=== PATIENT | female | born 2005 | race Caucasian/White ===

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

== ENCOUNTER 2024-04-22 09:30 | Outpatient (AMB) | payer OTHER, SELFPAY ==
[2024-04-22 09:37] VITALS: BP 108/59; PULSE 79; O2SAT 98; BMI 27.9
--- NOTE | 2024-04-22 09:37 | A.OFFPC_ITS ---
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 She states she had no trauma, bump on top right of head. Accompanied by: Mother Is last menstrual period known: Yes Last menstrual period: 04/19/24 Allergies No Known Allergies Allergy (Verified 04/22/24 09:41) Tobacco use date assessed: 04/22/24 Dental Screening Dental Screen Date: 04/22/24 Did you have a dental visit in the last 12 months?: Yes Did you have a dental problem in the last 6 months where you did not have access to dental care?: No Was dental information given to patient?: Patient has dentist HPI HPI Comments History of Present Illness Details This is a 18-year-old female with a past medical history of eczema presenting to [facility]. She is accompanied by her mother, Smiley. Patient noticed a bump on the right side of her scalp a couple of months ago. She is unsure if it has changed. She scheduled this appointment because it has become painful. It hurts to press on it, and she is getting headaches described as pain originating from the bump. They have been better the past few days. S he noticed them only in the evening when she was not distracted. Mom offered ibuprofen and Tylenol, but patient does not like to take medications. Admits she is not drinking a lot of water during the day. No vomiting, acute vision change, light sensitivity, dizziness, numbness or weakness. When questioning her about this, she says when she was in the car with her mom a few days ago they got in an argument. She was holding in some of her emotions. Patient felt anxious and tense. She says at that time vision was going in and out and she felt kind of nauseous, but symptoms resolved spontaneously, and they did not return. Denies head trauma. ROS: Constitutional: No unexplained weight loss, fever, chills, fatigue or night sweats. Eyes: No loss of vision, double vision, eye pain, eye redness, eye discharge. ENT: No hearing loss, sneezing, congestion, runny nose or sore throat. Respiratory: No shortness of breath Cardiovascular: No chest pain Gastrointestinal: No anorexia, nausea, vomiting or diarrhea. No abdominal pain. Neurologic: No dizziness, syncope, unilateral weakness, ataxia, numbness or tingling in the extremities. Physical exam: Constitutional: Alert, in no distress. Head: pea-sized, firm, tender lesion on right right parietal area. Patient endorses radiating head pain to her forehead when pressure is applied. no erythema or fluctuance. Eyes: Pupils are equal, round and reactive to light. Extraocular muscles intact. Ear, Nose and Throat: Canals clear. TMs normal. Normal nasal mucosa. No nasal discharge. No oral lesions. Neck: Supple, Full range of motion. No lymphadenopathy. Respiratory: Clear to auscultation. Cardiovascular: S1 S2 regular. No murmurs. Neurologic:?Alert and oriented x 3, no focal deficits observed, CN 2-12 intact, [id number]-[id number] normal, sensation equal and symmetric, strength UE and LE 5/5 bilaterally, reflexes equal and symmetric.? Normal gait.? Patient able to heel walk, toe walk and walk heel-to-toe across the floor.? No pronator drift.? Negative Romberg. Psychiatric: Normal mood and affect [facility] Medical History (Updated 04/22/24 @ 10:31 by ARNOLDO Esparza) Scalp cyst No pertinent past medical history Surgical History (Updated 04/22/24 @ 10:12 by ARNOLDO Esparza) History of wisdom tooth extraction No pertinent past surgical history Family History (Updated 04/22/24 @ 09:45 by Ashley Childs CMA) Mother Obesity Diabetes High blood pressure Brother No problems noted. Maternal Grandmother Cervical cancer Obesity Father Obesity Social History Household Members: Family Household Members Other:: Lives with mother and younger brother. No smokers in the home Both parents involved: Yes Housing: House Are you a primary care program director to a significant other at home: No Do you presently have visiting nurse or other home services: No 75 years or older and lives alone: No Patient Tobacco Use Status: Never used Tobacco e-Cigarette/Vaping Use: Never Used service: No Current occupational status: student Cognitive needs: No Hearing needs: No Vision needs: No Female Reproductive History Menstrual Date of last menstrual period: 04/19/24 Questionnaire PHQ-9 Over the last 2 weeks, how often have you been bothered by any of the following problems? 1. Little interest or pleasure in doing things: not at all 2. Feeling down, depressed, or hopeless: not at all 3. Trouble falling or staying asleep, or sleeping too much: not at all 4. Feeling tired or having little energy: not at all 5. Poor appetite or overeating: not at all 6. Feeling bad about yourself - or that you are a failure or have let yourself or your family down: not at all 7. Trouble concentrating on things, such as reading the newspaper or watching television: not at all 8. Moving or speaking so slowly that other people could have noticed. Or the opposite - being so fidgety or restless that you have been moving around a lot more than usual: not at all 9. Thoughts that you would be better off or of hurting yourself in some way: not at all Total score: 0 Source: Developed by Drs. Devonte Coates, Missy Tang, Sarthak Ramirez and colleagues, with an educational nani from [employer]. Thrive Questionnaire Date Thrive assessed: 04/22/24 I am a: Patient What is your living situation today?: I have a steady place to live Within the past 12 months, did the food you bought not last and you didn't have the money to get more?: Never true Within the past 12 months, did you worry whether your food would run out before you got money to buy more?: Never true Do you have trouble paying for medicines?: No Do you have trouble getting transportation to medical appointments?: No Do you have trouble paying your heating and electricity bill?: No Do you have trouble taking care of your child, family member or friend?: No Do you have trouble with day-to-day activities such as bathing, preparing meals, shopping, managing finances, etc.?: No Are you currently unemployed and looking for a job?: No Are you interested in more education?: Yes THRIVE Score: 0 AUDIT C Alcohol Use Questionnaire (AUDIT-C) 1. How often do you have a drink containing alcohol?: Never 3. How often do you have six or more drinks on one occasion?: Never Total Score: 0 DEVONTE-7 AMB Questionnaire DEVONTE-7 Date DEVONTE - 7 assessed: 04/22/24 Feeling nervous, anxious, or on edge: 1 = Several days Not being able to stop or control worryin = Not at all Worrying too much about different things: 0 = Not at all Trouble relaxin = Several days Being so restless that it is hard to sit still: 3 = Nearly every day Becoming easily annoyed or irritable: 3 = Nearly every day Feeling afraid as if something awful might happen: 1 = Several days Total DEVONTE-7 score (0-4 normal; 5-9 mild; 10-14 moderate; 15-21 severe): 9 Source: Developed by Drs. Devonte Coates, Missy Tang, Sarthak Ramirez and colleagues, with an educational nani from [employer]. Physical exam (Primary Care) Vital Signs: Last Vital Signs Pulse 79 04/22/24 09:37 BP 108/59 L 04/22/24 09:37 Pulse Ox 98 04/22/24 09:37 Oxygen Delivery Method Room Air 04/22/24 09:37 BMI result Body Mass Index 27.9 Tobacco/Smoking Status: Tobacco use Status Tobacco use date assessed 04/22/24 04/22/24 09:50 Patient Tobacco Use Status Never used Tobacco 04/22/24 09:50 e-Cigarette/Vaping Use Never Used 04/22/24 09:50 PHQ-9: PHQ-9 Score PHQ-9: Total score 0 04/22/24 09:50 Thrive Assessment: Date of Thrive Assessment Date Thrive assessed 04/22/24 04/22/24 09:50 Assessment and Plan Assessment & Plan (1) Scalp cyst: Code(s): L72.9 - Follicular cyst of the skin and subcutaneous tissue, unspecified (2) Head pain: Code(s): R51.9 - Headache, unspecified Qualifiers: Headache type: other headache syndrome Qualified Code(s): G44.89 - Other headache syndrome Plan Clinical suspicion for dermoid or pilar cyst. It's become uncomfortable for the pt even though it is small so I referred her to [place] [facility] to discuss excision. Patient associated head pain/headache with it. Tender on exam but no erythema, swelling or fevers/chills to indicate infection. Avoid touching the bump. Increase fluids, apply warm or cold compress in evening to see if this helps. Neurologic exam wnl so deferred imaging at this time. Advised to call back if symptoms worsen. Warning signs warranting ER evaluation reviewed. Orders: Referrals Dermatology Referral L72.9 - Follicular cyst of the skin and subcutaneous tissue, unspecified Coding Level of Care Code New Pt Level 3 (41811) Complex EM visit Add On G2211 Diagnoses Scalp cyst L72.9 Other headache syndrome G44.89 Headache type: other headache syndrome
== END 2024-04-22 10:33 | disposition home or self-care (01) ==
PROVIDERS: PCP Physician Assistant Medical; Visit Provider Physician Assistant Medical
DX: L72.9 Follicular cyst of the skin and subcutaneous tissue, unspecified (principal); G44.89 Other headache syndrome
CPT/HCPCS: 99203; G2211

== ENCOUNTER 2024-07-08 08:23 | Outpatient (AMB) | payer OTHER, SELFPAY ==
--- NOTE | 2024-07-08 08:28 | A.OFFPC_ITS ---
Vital Signs 07/08/24 08:30 Height 5 ft 1.81 in Weight 152 lb BMI 28.0 BP 98/60 Blood Pressure Location Rt brachial Position Sitting Respiration 12 Pulse 87 Pulse Source Pulse Oximeter Pulse Oximetry (%) 98 Oxygen Delivery Method Room Air Intake Visit Reasons: pe Intake Note: Physical Allergies No Known Allergies Allergy (Verified 07/08/24 08:28) Tobacco use date assessed: 04/22/24 Dental Screening Dental Screen Date: 04/22/24 HPI HPI Comments History of Present Illness Details This is a 18-year-old female with a past medical history of eczema presenting for a physical exam. 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 She is on NuvaRing. She declined testing for STIs today because they perform them there. The patient tells me she had her menstrual period last week when she removed the NuvaRing, and there was some tissue and clots. She did not have excessive cramping or dizziness. She also mentions that she had a similar experience when she took plan B 3 or 4 times within 1 month. She spoke to the electronic warfare operator about it. She was worried it could have impacted her future fertility. Patient says they accept walk-ins so she is going to follow up with her electronic warfare operator this week about this. She just received the letter regarding the dermatology referral. She is going to call to schedule the appointment for evaluation of the cyst on her scalp. It has not changed since her evaluation with me. ROS: Constitutional: No unexplained weight loss, fever, chills, fatigue or night sweats. Eyes: No vision changes, blurry vision, double vision, eye pain, eye redness, eye discharge. ENT: No hearing loss, sneezing, congestion, runny nose or sore throat. Respiratory: No shortness of breath, cough or sputum production. Cardiovascular: No chest pain, chest pressure or chest discomfort. No palpitations or pedal edema. Gastrointestinal: No anorexia, nausea, vomiting or diarrhea. No abdominal pain or blood in stool. Genitourinary: No dysuria, hematuria, urinary frequency. Neurologic: No headache, dizziness, syncope, unilateral weakness, ataxia, numbness or tingling in the extremities. Musculoskeletal: No muscle pain, back pain, joint pain or swelling. Hematologic/Lymphatics: No bleeding or bruising. No painful lymph nodes. Skin: No rash. Endocrine: No cold or heat intolerance. No polyuria or polydipsia. Psychiatric: No depression or anxiety. No SI/HI. Physical exam: Constitutional: Alert, in no distress. Head: pea-sized, firm, tender lesion on right right parietal area. Tender. No erythema or fluctuance. Eyes: Pupils are equal, round and reactive to light. Extraocular muscles intact. Ear, Nose and Throat: Canals clear. TMs normal. Normal nasal mucosa. No nasal discharge. No oral lesions. Neck: Supple, Full range of motion. No lymphadenopathy. No palpable thyroid masses. Respiratory: Clear to auscultation. Cardiovascular: S1 S2 regular. No murmurs. Gastrointestinal: Abdomen soft, non-tender, non-distended. Normal bowel sounds. No palpable masses. Neurologic: No focal neurological deficits. Symmetric patellar reflexes. Moves all extremities spontaneously. Sensation intact bilaterally. Skin: No rashes or lesions. Musculoskeletal: No gross deformities. Normal range of motion. Extremities: Warm and well perfused. No clubbing, cyanosis or edema. 3+ peripheral pulses bilaterally. Psychiatric: Normal mood and affect [facility] Medical History (Updated 04/22/24 @ 10:31 by ARNOLDO Esparza) Scalp cyst No pertinent past medical history Surgical History (Updated 04/22/24 @ 10:12 by ARNOLDO Esparza) History of wisdom tooth extraction No pertinent past surgical history Family History (Updated 04/22/24 @ 09:45 by Ashley Childs CMA) Mother Obesity Diabetes High blood pressure Brother No problems noted. Maternal Grandmother Cervical cancer Obesity Father Obesity Social History Household Members: Family Household Members Other:: Lives with mother and younger brother. No smokers in the home Housing: House Are you a primary transitions rn care coordinator to a significant other at home: No Do you presently have visiting nurse or other home services: No Patient Tobacco Use Status: Never used Tobacco e-Cigarette/Vaping Use: Never Used service: No Current occupational status: student Cognitive needs: No Hearing needs: No Vision needs: No Questionnaire PHQ-9 Over the last 2 weeks, how often have you been bothered by any of the following problems? 1. Little interest or pleasure in doing things: not at all 2. Feeling down, depressed, or hopeless: not at all 3. Trouble falling or staying asleep, or sleeping too much: not at all 4. Feeling tired or having little energy: not at all 5. Poor appetite or overeating: not at all 6. Feeling bad about yourself - or that you are a failure or have let yourself or your family down: not at all 7. Trouble concentrating on things, such as reading the newspaper or watching television: not at all 8. Moving or speaking so slowly that other people could have noticed. Or the opposite - being so fidgety or restless that you have been moving around a lot more than usual: not at all 9. Thoughts that you would be better off or of hurting yourself in some way: not at all Total score: 0 Depression Screening Interpretation: Negative Depression Screening Done: Yes [id number] - PHQ-9 Billing: Yes Source: Developed by Drs. Devonte Coates, Missy Tang, Sarthak Ramirez and colleagues, with an educational nani from [employer]. Thrive Questionnaire Date Thrive assessed: 07/08/24 I am a: Patient What is your living situation today?: I have a steady place to live Within the past 12 months, did the food you bought not last and you didn't have the money to get more?: Never true Within the past 12 months, did you worry whether your food would run out before you got money to buy more?: Never true Do you have trouble paying for medicines?: No Do you have trouble getting transportation to medical appointments?: No Do you have trouble paying your heating and electricity bill?: No Do you have trouble taking care of your child, family member or friend?: No Do you have trouble with day-to-day activities such as bathing, preparing meals, shopping, managing finances, etc.?: No Are you currently unemployed and looking for a job?: No Are you interested in more education?: No Please select the resources that you would like help with: None Currently or been in a relationship where the following occur: No concerns reported THRIVE Score: 0 DEVONTE-7 AMB Questionnaire DEVONTE-7 Date DEVONTE - 7 assessed: 04/22/24 Feeling nervous, anxious, or on edge: 1 = Several days Not being able to stop or control worryin = Not at all Worrying too much about different things: 0 = Not at all Trouble relaxin = Not at all Being so restless that it is hard to sit still: 0 = Not at all Becoming easily annoyed or irritable: 0 = Not at all Feeling afraid as if something awful might happen: 0 = Not at all Total DEVONTE-7 score (0-4 normal; 5-9 mild; 10-14 moderate; 15-21 severe): 1 Source: Developed by Drs. Devonte Coates, Missy Tang, Sarthak Ramirez and colleagues, with an educational nani from [employer]. DEVONTE-7 Assessment Billing DEVONTE-7 Assessment Tool: DEVONTE-7 Assessment 52219 Physical exam (Primary Care) Vital Signs: Last Vital Signs Pulse 87 07/08/24 08:30 Resp 12 07/08/24 08:30 BP 98/60 07/08/24 08:30 Pulse Ox 98 07/08/24 08:30 Oxygen Delivery Method Room Air 07/08/24 08:30 BMI result Body Mass Index 28.0 Tobacco/Smoking Status: Tobacco use Status Tobacco use date assessed 04/22/24 07/08/24 08:33 Patient Tobacco Use Status Never used Tobacco 07/08/24 08:33 e-Cigarette/Vaping Use Never Used 07/08/24 08:33 PHQ-9: PHQ-9 Score PHQ-9: Total score 0 07/08/24 08:43 Depression Screening Interpretation: Negative Thrive Assessment: Date of Thrive Assessment Date Thrive assessed 07/08/24 07/08/24 08:33 Currently or been in a relationship where the following occur: No concerns reported Assessment and Plan Assessment & Plan (1) Routine physical examination: Code(s): Z00.00 - Encounter for general adult medical examination without abnormal findings Plan: Patient is seen today for a routine physical. As part of this visit we reviewed the following issues, which are considered and essential part of preventative health in this age group: - Annual Stove Carriage Operator exam - Blood pressure screening - Cholesterol screening - Osteoporosis prevention including calcium/vitamin D intake, weight bearing exercise & smoking cessation - Nutritional and exercise counseling - Counseling of injury prevention including fire prevention, smoke alarms and seat belt usage - Screening for depression - Prevention of and/or testing for infectious diseases - Education about skin cancer - Recommendations about immunizations - I recommended the influenza vaccine. It is not available at the office. She can receive it at the pharmacy. - Recommendation of an eye exam - Screening for substance abuse - Genetic cancer risk screening (2) Scalp cyst: Code(s): L72.9 - Follicular cyst of the skin and subcutaneous tissue, unspecified Plan: The patient will call the most Dermatology to schedule the consult. Plan Follow up in 1 year for a physical exam. Orders: Orders Lipid Panel Today L72.9 - Follicular cyst of the skin and subcutaneous tissue, unspecified, Z00.00 - Encounter for general adult medical examination without abnormal findings, Z13.6 - Encounter for screening for cardiovascular disorders Comprehensive Met. Panel Today L72.9 - Follicular cyst of the skin and subcutaneous tissue, unspecified, Z00.00 - Encounter for general adult medical examination without abnormal findings, Z13.6 - Encounter for screening for cardiovascular disorders TSH reflex Free T4 Today L72.9 - Follicular cyst of the skin and subcutaneous tissue, unspecified, Z00.00 - Encounter for general adult medical examination without abnormal findings, Z13.6 - Encounter for screening for cardiovascular disorders Complete Blood Count no Diff Today L72.9 - Follicular cyst of the skin and subcutaneous tissue, unspecified, Z00.00 - Encounter for general adult medical examination without abnormal findings, Z13.6 - Encounter for screening for cardiovascular disorders Coding Level of Care Code Est Pt Prev Care 18-39y(94020) Diagnoses Routine physical examination Z00.00 Scalp cyst L72.9 Additional Codes DEVONTE-7 Assessment Billing - DEVONTE-7 Assessment Tool: DEVONTE-7 Assessment [id number] ([id number])
[2024-07-08 08:30] VITALS: BP 98/60; PULSE 87; RESP 12; O2SAT 98; BMI 28.0
== END 2024-07-08 09:10 | disposition home or self-care (01) ==
PROVIDERS: PCP Physician Assistant Medical; Visit Provider Physician Assistant Medical
DX: Z00.00 Encounter for general adult medical examination without abnormal findings (principal); L72.9 Follicular cyst of the skin and subcutaneous tissue, unspecified

== ENCOUNTER → 2024-07-08 08:23 | Outpatient (BNVA) | payer OTHER, SELFPAY | PROVIDERS: PCP Physician Assistant Medical; Visit Provider Physician Assistant Medical | DX: Z00.01 Encounter for general adult medical examination with abnormal findings (principal); L72.9 Follicular cyst of the skin and subcutaneous tissue, unspecified | CPT/HCPCS: 96127; 99395 ==

== ENCOUNTER 2024-07-08 09:15 | Outpatient (REF) | payer OTHER, SELFPAY ==
[2024-07-08 11:31] LABS: Hemoglobin 13.1 g/dl (12.0-16.0); Mean Corpuscular HGB Conc 34.5 g/dl (31.0-35.0); Mean Corpuscular Hemoglobin 30.5 pg (27.0-33.0); Mean Corpuscular Volume 88.6 fL (80.0-98.0); Mean Platelet Volume 10.7 fL (9.4-12.3); Platelet Count 201 X10*3/uL (160-400); Red Blood Count 4.29 X10*6/uL (4.20-5.50); Red Cell Distribution Width 12.1 % (11.0-16.0); White Blood Count 5.8 X10*3/uL (4.8-10.8)
[2024-07-08 12:00] LABS: Alanine Aminotransferase 9 U/L (0-31); Albumin Level 4.3 g/dL (3.5-5.0); Alkaline Phosphatase 45 U/L (39-117); Anion Gap 11 (12-20); Aspartate Amino Transferase 20 U/L (5-31); Bilirubin Total 0.5 mg/dL (0.0-1.0); Blood Urea Nitrogen 18 mg/dL (9-16); Calcium 9.7 mg/dL (8.4-10.2); Carbon Dioxide 23 mmol/L (22-29); Chloride 107 mmol/L (96-108); Cholesterol 158 mg/dL (<200); Estimated Glomerular Filt Rate > 60; Glucose Random 87 mg/dL (60-115); HDL Cholesterol 64 mg/dL (>40); LDL Cholesterol Calculated 77 mg/dL (<100); Potassium 3.9 mmol/L (3.3-5.1); Sodium 137 mmol/L (135-145); Triglycerides 89 mg/dL (<150)
[2024-07-08 12:03] LABS: TSH reflex Free T4 1.02 uIU/mL (0.32-4.0)
== END 2024-07-08 09:16 | disposition home or self-care (01) ==
LOC: HO.WFDLDS 09:15
PROVIDERS: Visit Provider Physician Assistant Medical
DX: Z00.00 Encounter for general adult medical examination without abnormal findings (principal); Z13.6 Encounter for screening for cardiovascular disorders; L72.9 Follicular cyst of the skin and subcutaneous tissue, unspecified
CPT/HCPCS: 36415; 80053; 80061; 84443; 85027

== ENCOUNTER 2025-07-14 08:30 | Outpatient (AMB) | payer OTHER, SELFPAY ==
--- NOTE | 2025-07-14 08:35 | MHC.PC.OV ---
Vital Signs 07/14/25 08:41 Height 5 ft 2 in Weight 175 lb 2 oz BMI 32.0 BP 98/62 Blood Pressure Location Rt brachial Position Sitting Respiration 14 Pulse 73 Pulse Source Pulse Oximeter Temp 97.9 F Temp Source Temporal Artery Scan Pulse Oximetry (%) 98 Oxygen Delivery Method Room Air Intake Visit Reasons: CPE Intake Note: Farrukh presents in the office today for her annual physical. Patient would like a new Rx for the triamincolone cream. Allergies No Known Allergies Allergy (Verified 07/14/25 08:38) Medication List - Last Reconciled 07/14/25 by ARNOLDO Esparza levonorgestrel (Kyleena) intrauterine triamcinolone acetonide 0.1% 1 appl topical BID 14 days Tobacco use date assessed: 07/14/25 Dental Screening Dental Screen Date: 07/14/25 Did you have a dental visit in the last 12 months?: Yes Did you have a dental problem in the last 6 months where you did not have access to dental care?: No Was dental information given to patient?: Patient has dentist HPI HPI Comments History of Present Illness Details This is a 18-year-old female with a past medical history of eczema presenting for a physical exam. [facility] due to urinary frequency for the past 1-2 weeks. Patient says they did a swab for STIs and took a urine sample. They told her the urine sample looked normal and then brought up a concern about type 1 diabetes. Patient is anxious about this. Denies family history of type 1 diabetes. She does have type 2 diabetes in her family. She had her menstrual period that day. She is still waiting on the test results from the clinic. She has gained weight over the past year because she moved in temporarily with her grandmother, and she was eating a lot more foods and not exercising. She notes that she also got an IUD. She is going to work on eating better and exercising. She had already lost some weight since moving out of her grandmothers, and she mentioned that to the provider at the clinic. Tdap 10/28/2016. Flu vaccine: Declines today. She did not have anything to eat yet today. Last thing she had was a strawberry lemonade at 10:00 last night. ROS: Constitutional: No unexplained weight loss, fever, chills, fatigue or night sweats. Eyes: No vision changes, blurry vision, double vision, eye pain, eye redness, eye discharge. ENT: No hearing loss, sneezing, congestion, runny nose or sore throat. Respiratory: No shortness of breath, cough or sputum production. Cardiovascular: No chest pain, chest pressure or chest discomfort. No palpitations or pedal edema. Gastrointestinal: No anorexia, nausea, vomiting or diarrhea. No abdominal pain or blood in stool. Genitourinary: No dysuria, hematuria, pelvic pain, flank pain or history of kidney stones. Denies abnormal vaginal bleeding. Denies vaginal discharge or odor. Neurologic: No headache, dizziness, syncope, unilateral weakness, ataxia, numbness or tingling in the extremities. Musculoskeletal: No muscle pain, back pain, joint pain or swelling. Hematologic/Lymphatics: No bleeding or bruising. No painful lymph nodes. Skin: History of eczema. She needs a refill on triamcinolone. Endocrine: No cold or heat intolerance. No polyuria or polydipsia. Psychiatric: No depression or anxiety. No SI/HI. Physical exam: Constitutional: Alert, in no distress. Head: Normocephalic Eyes: Pupils are equal, round and reactive to light. Extraocular muscles intact. Ear, Nose and Throat: Canals clear. TMs normal. Normal nasal mucosa. No nasal discharge. No oral lesions. Neck: Supple, Full range of motion. No lymphadenopathy. No palpable thyroid masses. Respiratory: Clear to auscultation. Cardiovascular: S1 S2 regular. No murmurs. Gastrointestinal: Abdomen soft, non-tender, non-distended. Normal bowel sounds. No palpable masses. No rebound or guarding. : No CVA tenderness. Neurologic: No focal neurological deficits. Symmetric patellar reflexes. Moves all extremities spontaneously. Sensation intact bilaterally. Skin: Acneiform facial lesions. Musculoskeletal: No gross deformities. Normal range of motion. Extremities: Warm and well perfused. No clubbing, cyanosis or edema. Intact peripheral pulses bilaterally. Psychiatric: Normal mood and affect [facility] Medical History (Updated 07/14/25 @ 09:31 by ARNOLDO Esparza) Fluctuation of weight Routine physical examination Urinary frequency Scalp cyst No pertinent past medical history Surgical History (Updated 04/22/24 @ 10:12 by ARNOLDO Esparza) History of wisdom tooth extraction No pertinent past surgical history Family History Mother Obesity Diabetes High blood pressure Brother No problems noted. Maternal Grandmother Cervical cancer Obesity Father Obesity Social History (Updated 07/14/25 @ 08:41 by Margarita Keita CMA) Household Members: Family Household Members Other:: Lives with mother and younger brother. No smokers in the home Both parents involved: Yes Housing: House Are you a primary inpatient care manager rn to a significant other at home: No Do you presently have visiting nurse or other home services: No 75 years or older and lives alone: No Alcohol intake: never Patient Tobacco Use Status: Never used Tobacco e-Cigarette/Vaping Use: Never Used Second Hand Smoke Exposure: No service: No Current occupational status: student Cognitive needs: No Hearing needs: No Vision needs: No Questionnaire PHQ-9 Over the last 2 weeks, how often have you been bothered by any of the following problems? 1. Little interest or pleasure in doing things: not at all 2. Feeling down, depressed, or hopeless: not at all 3. Trouble falling or staying asleep, or sleeping too much: not at all 4. Feeling tired or having little energy: several days 5. Poor appetite or overeating: several days 6. Feeling bad about yourself - or that you are a failure or have let yourself or your family down: not at all 7. Trouble concentrating on things, such as reading the newspaper or watching television: not at all 8. Moving or speaking so slowly that other people could have noticed. Or the opposite - being so fidgety or restless that you have been moving around a lot more than usual: not at all 9. Thoughts that you would be better off or of hurting yourself in some way: not at all Total score: 2 Depression Screening Interpretation: Negative Depression Screening Done: Yes 22106 - PHQ-9 Billing: Yes Source: Developed by Drs. Devonte Coates, Missy Tang, Sarthak Ramirez and colleagues, with an educational nani from [employer] Thrive Questionnaire Date Thrive assessed: 07/14/25 I am a: Patient What is your living situation today?: I have a steady place to live Within the past 12 months, did the food you bought not last and you didn't have the money to get more?: Never true Within the past 12 months, did you worry whether your food would run out before you got money to buy more?: Never true Do you have trouble paying for medicines?: No Do you have trouble getting transportation to medical appointments?: No Do you have trouble paying your heating and electricity bill?: No Do you have trouble taking care of your child, family member or friend?: No Do you have trouble with day-to-day activities such as bathing, preparing meals, shopping, managing finances, etc.?: No Are you currently unemployed and looking for a job?: No Are you interested in more education?: Yes Please select the resources that you would like help with: None Currently or been in a relationship where the following occur: No concerns reported THRIVE Score: 0 AUDIT C Alcohol Use Questionnaire (AUDIT-C) 1. How often do you have a drink containing alcohol?: Never 2. How many drinks containing alcohol do you have on a typical day when you are drinking?: 1 or 2 3. How often do you have six or more drinks on one occasion?: Never Total Score: 0 DEVONTE-7 AMB Questionnaire DEVONTE-7 Date DEVONTE - 7 assessed: 07/14/25 Feeling nervous, anxious, or on edge: 1 = Several days Not being able to stop or control worryin = Not at all Worrying too much about different things: 0 = Not at all Trouble relaxin = Several days Being so restless that it is hard to sit still: 0 = Not at all Becoming easily annoyed or irritable: 1 = Several days Feeling afraid as if something awful might happen: 0 = Not at all Total DEVONTE-7 score (0-4 normal; 5-9 mild; 10-14 moderate; 15-21 severe): 3 Source: Developed by Drs. Devonte Coates, Missy Tang, Sarthak Ramirez and colleagues, with an educational nani from [employer]. DEVONTE-7 Assessment Billing DEVONTE-7 Assessment Tool: DEVONTE-7 Assessment 19841 Physical exam (Primary Care) Vital Signs: Last Vital Signs Temp 97.9 F 07/14/25 08:41 Pulse 73 07/14/25 08:41 Resp 14 07/14/25 08:41 BP 98/62 07/14/25 08:41 Pulse Ox 98 07/14/25 08:41 Oxygen Delivery Method Room Air 07/14/25 08:41 BMI result Body Mass Index 32.0 Tobacco/Smoking Status: Tobacco use Status Tobacco use date assessed 07/14/25 07/14/25 08:43 Patient Tobacco Use Status Never used Tobacco 07/14/25 08:41 e-Cigarette/Vaping Use Never Used 07/14/25 08:41 PHQ-9: PHQ-9 Score PHQ-9: Total score 2 07/14/25 10:07 Depression Screening Interpretation: Negative Thrive Assessment: Date of Thrive Assessment Date Thrive assessed 07/14/25 07/14/25 08:37 Currently or been in a relationship where the following occur: No concerns reported Office Procedures Glucose Monitoring Details Details: 98 [id number] - Continuous Glucose Monitoring, patient provides equipment Procedure code (CPT) selection complete Results AMB Urinalysis Dipstick UR Leukocytes Trace Last Edit by Margarita Keita CMA on 07/14/25 10:10 UR Nitrite Negative Last Edit by Margarita Keita CMA on 07/14/25 10:10 UR Urobilinogen Normal Last Edit by Margarita Keita CMA on 07/14/25 10:10 UR Protein Trace Last Edit by Margarita Keita CMA on 07/14/25 10:10 UR Ph 6.0 Last Edit by Margarita Keita CMA on 07/14/25 10:10 UR Blood Large Last Edit by Margarita Keita CMA on 07/14/25 10:10 UR Specific Mineral 1.025 Last Edit by Margarita Keita CMA on 07/14/25 10:10 UR Ketone Negative Last Edit by Margarita Keita CMA on 07/14/25 10:10 UR Bilirubin Negative Last Edit by Margarita Keita CMA on 07/14/25 10:10 UR Glucose Negative Last Edit by Margarita Keita CMA on 07/14/25 10:10 Results Reviewed Results Reviewed: Laboratory Last Values Urine pH (Clinic) 6.0 07/14/25 10:07 Specific Mineral (Clinic) 1.025 07/14/25 10:07 Ur Protein (Clinic) Trace 07/14/25 10:07 Ur Ketones (Clinic) Negative 07/14/25 10:07 Urine Blood (Clinic) Large 07/14/25 10:07 Urine Nitrite Negative 07/14/25 10:07 Urine Bilirubin (Clinic) Negative 07/14/25 10:07 Urobilinogen (Clinic) Normal 07/14/25 10:07 Leukocyte Esterase (Clinic) Trace 07/14/25 10:07 Urine Glucose (Clinic) Negative 07/14/25 10:07 Coding Level of Care Code Est Pt Prev Care [id number](67437) Diagnoses Routine physical examination Z00.00 Urinary frequency R35.0 Fluctuation of weight R68.89 CPT Codes Details - CPT: 56766 - Continuous Glucose Monitoring, patient provides equipment ([id number]) Additional Codes DEVONTE-7 Assessment Billing - DEVONTE-7 Assessment Tool: DEVONTE-7 Assessment 55419 ([id number]) PHQ-9 - 60196 - PHQ-9 Billing: Yes ([id number]) Assessment & Plan Assessment & Plan (1) Routine physical examination: Code(s): Z00.00 - Encounter for general adult medical examination without abnormal findings Category: Medical Plan: Patient is seen today for a routine physical. As part of this visit we reviewed the following issues, which are considered and essential part of preventative health in this age group: - Annual [employer] exam - Blood pressure screening - Osteoporosis prevention including calcium/vitamin D intake, weight bearing exercise & smoking cessation - Nutritional and exercise counseling - Counseling of injury prevention including fire prevention, smoke alarms and seat belt usage - Screening for depression - Prevention of and/or testing for infectious diseases - has routine screenings with director of consulting services at health services - Education about skin cancer - Recommendations about immunizations - Recommendation of an eye exam - Screening for substance abuse (2) Urinary frequency: Code(s): R35.0 - Frequency of micturition Category: Medical Plan: Patient is waiting on test results for [facility]. Urine dip is equivocal today as patient has her menstrual period. No glycosuria. Culture ordered. Advised patient to decrease caffeine. States she does drink a lot of caffeine and sugary drinks. Avoid acidic drinks. Increase water intake. (3) Fluctuation of weight: Code(s): R68.89 - Other general symptoms and signs Category: Medical Plan: This could easily be attributed to eating more food when she moved in with her grandmother and then starting to eat healthier when she moved out and change in her activity level. I will check a TSH and check hemoglobin A1c given concern of urinary frequency in a patient with a family history of diabetes. POC normal at 98 today. Plan Schedule physical in 1 year. Orders: Orders Hemoglobin A1c Today R35.0 - Frequency of micturition, R73.9 - Hyperglycemia, unspecified, Z00.00 - Encounter for general adult medical examination without abnormal findings AMB Glucose Monitoring Today E11.9 - Type 2 diabetes mellitus without complications, R35.0 - Frequency of micturition, Z00.00 - Encounter for general adult medical examination without abnormal findings AMB Urinalysis Dipstick Today R35.0 - Frequency of micturition, Z00.00 - Encounter for general adult medical examination without abnormal findings, Z13.9 - Encounter for screening, unspecified Comprehensive Met. Panel Today R35.0 - Frequency of micturition, Z00.00 - Encounter for general adult medical examination without abnormal findings Urine Culture Today R35.0 - Frequency of micturition, R39.9 - Unspecified symptoms and signs involving the genitourinary system, Z00.00 - Encounter for general adult medical examination without abnormal findings Complete Blood Count no Diff Today R35.0 - Frequency of micturition, Z00.00 - Encounter for general adult medical examination without abnormal findings TSH reflex Free T4 Today R35.0 - Frequency of micturition, R68.89 - Other general symptoms and signs Medications: Refilled triamcinolone acetonide 0.1% 1 appl topical BID 453.6 grams 1RF 14 days
[2025-07-14 08:41] VITALS: BP 98/62; PULSE 73; RESP 14; TEMP 36.6; O2SAT 98; BMI 32.0
== END 2025-07-14 09:12 | disposition home or self-care (01) ==
LOC: HO.HMCFM 08:30
PROVIDERS: PCP Physician Assistant Medical; Visit Provider Physician Assistant Medical
DX: Z00.00 Encounter for general adult medical examination without abnormal findings (principal); R35.0 Frequency of micturition; R68.89 Other general symptoms and signs; Z13.9 Encounter for screening, unspecified

== ENCOUNTER 2025-07-14 08:30 | Outpatient (REF) | payer OTHER, SELFPAY ==
[2025-07-14 11:34] LABS: Hematocrit 37.2 % (37.0-47.0); Hemoglobin 12.7 g/dl (12.0-16.0); Mean Corpuscular HGB Conc 34.1 g/dl (31.0-35.0); Mean Corpuscular Hemoglobin 30.1 pg (27.0-33.0); Mean Corpuscular Volume 88.2 fL (80.0-98.0); NRBC Abs Auto 0.000 X10*3/uL (0.0-0.012); NRBC Pct Auto 0.0 /100WBC (0.0-0.2); Platelet Count 232 X10*3/uL (160-400); Red Blood Count 4.22 X10*6/uL (4.20-5.50); White Blood Count 5.6 X10*3/uL (4.8-10.8)
[2025-07-14 12:08] LABS: Alanine Aminotransferase 16 U/L (0-31); Albumin Level 4.5 g/dL (3.5-5.0); Alkaline Phosphatase 52 U/L (39-117); Anion Gap 11 (12-20); Aspartate Amino Transferase 29 U/L (5-31); Blood Urea Nitrogen 9 mg/dL (9-16); Calcium 9.7 mg/dL (8.4-10.2); Carbon Dioxide 24 mmol/L (22-29); Chloride 108 mmol/L (96-108); Estimated Glomerular Filt Rate > 60; Potassium 3.8 mmol/L (3.3-5.1); Sodium 139 mmol/L (135-145); Total Protein 7.6 g/dL (6.5-8.0)
== END 2025-07-14 08:31 | disposition home or self-care (01) ==
LOC: HO.WFDLDS 08:30
PROVIDERS: PCP Physician Assistant Medical; Visit Provider Physician Assistant Medical
DX: Z00.00 Encounter for general adult medical examination without abnormal findings (principal); R35.0 Frequency of micturition; R68.89 Other general symptoms and signs; R39.9 Unspecified symptoms and signs involving the genitourinary system; R73.9 Hyperglycemia, unspecified; Z13.31 Encounter for screening for depression; Z13.39 Encounter for screening examination for other mental health and behavioral disorders
CPT/HCPCS: 36415; 80053; 81002; 83036; 84443; 85027; 87086; 95249; 96127; 99395

== ENCOUNTER 2025-08-14 08:53 | Outpatient (REF) | payer OTHER, SELFPAY ==
--- NOTE | ~2025-08-14 | US_ITS ---
CLINICAL HISTORY: R35.0 - Frequency of micturition US Renal Comparison: None provided Findings: Right kidney normal size and echotexture, 10.1 cm length. Left kidney normal size and echotexture, 10.0 cm length. No collecting system dilatation of either kidney. Normal color Doppler. Urinary bladder is unremarkable. Prevoid volume 766.0 mL. Postvoid volume 24.3 mL. Bilateral ureteral jets are visualized. IMPRESSION: 1. Normal kidneys. 2. No significant postvoid residual. This document has been electronically signed by: Roxanne Pelayo MD on 08/15/2025 08:47:18
== END 2025-08-14 08:54 | disposition home or self-care (01) ==
LOC: HO.US 08:53
PROVIDERS: PCP Physician Assistant Medical; Visit Provider Physician Assistant Medical
DX: R35.0 Frequency of micturition (principal)
CPT/HCPCS: 76770

== ENCOUNTER → 2025-08-14 08:56 | Outpatient (BNV) | payer OTHER, SELFPAY | PROVIDERS: PCP Physician Assistant Medical; Visit Provider Radiology Diagnostic Radiology | DX: R35.0 Frequency of micturition (principal) | CPT/HCPCS: 76770 ==